=== PATIENT | female | born 1985 | race American Indian/Alaskan Native ===

== ENCOUNTER 2020-03-11 16:31 | Emergency (ER) | payer OTHER ==
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
[2020-03-11 22:05] VITALS: BP 124/80
== END 2020-03-11 22:04 | disposition left against medical advice (07) ==
LOC: ED 16:31
DX: M54.2 Cervicalgia (principal); M25.512 Pain in left shoulder; Z53.21 Procedure and treatment not carried out due to patient leaving prior to being seen by health care provider; V49.49XA Driver injured in collision with other motor vehicles in traffic accident, initial encounter; Y93.89 Activity, other specified; Y92.410 Unspecified street and highway as the place of occurrence of the external cause; Y99.8 Other external cause status